=== PATIENT | male | born 1945 | race Caucasian/White ===

== ENCOUNTER 2023-11-13 10:17 | Day surgery (SDC) | payer MEDICARE, OTHER, SELFPAY ==
[2023-11-13] VITALS (9 sets, daily range): BP systolic 109–166; BP diastolic 64–86; PULSE 65–76; RESP 10–24; TEMP 36.1–36.8; O2SAT 93–99; BMI 31.7
[2023-11-13] MEDS: LACTATED RINGERS 1,000 ML 84 ML IV (11:19)
--- NOTE | 2023-11-13 11:46 | PM.HP.1 ---
History of Present Illness History of Present Illness Chief complaint: [facility] [place]: Morning chest discomfort/fullness. Rule out GERD PFSH Medical History (Updated 08/30/22 @ 13:29 by BETZAIDA Roa) Daytime sleepiness History of decreased platelet count Idiopathic hypersomnia (~2011) Obstructive sleep apnea of adult (~2011) Surgical History (Updated 03/15/21 @ 12:59 by Luz Cosby CMA) H/O total knee replacement Social History Smoking Status: Never smoker Meds Home Medications and Allergies Home Medications Medication Instructions Recorded Confirmed Type typhoid vaccin,live,attenuated 2 4 cap PO SEE INSTRUCTIONS #4 caps 12/06/16 03/20/21 Rx billion unit capsule,delayed release (Vivotif Linda Vaccine) ResMed Aircurve 10 VAuto BIPAP #1 ea 12/02/18 03/20/21 History aspirin 81 mg tablet,delayed 81 mg PO DAILY 03/15/21 03/20/21 History release (Adult Low Dose Aspirin) glucosamine sulfate 500 mg capsule 500 mg PO DAILY 03/15/21 03/20/21 History losartan 50 mg tablet 50 mg PO DAILY 03/15/21 03/20/21 History ciprofloxacin 0.3 %-dexamethasone 4 drp EAR-RIGHT Q12H #7.5 mL 05/02/21 05/02/21 Rx 0.1 % ear drops,suspension (Ciprodex) Allergies Allergy/AdvReac Type Severity Reaction Status Date / Time iodine [IODINE] Allergy Unknown Verified 11/13/23 11:20 Penicillins [PENICILLINS] Allergy Unknown Verified 11/13/23 11:20 propofol [PROPOFOL] Allergy Unknown Verified 11/13/23 11:20 Assessment & Plan Assessment & Plan narrative: Chest discomfort/fullness. Rule out GERD. EGD to be performed. Risks, benefits, alternatives have been explained.
--- NOTE | 2023-11-13 11:47 | PM.OP.EGD ---
Operative Date/Time/Diagnoses Date of procedure: 11/13/23 Pre-op diagnosis: See indication and findings Procedure & Clinicians Study performed: EGD Indications: Morning chest discomfort/fullness rule out GERD Surgeon: Chasity Wick Procedure Notes Procedure in detail: After informed consent was obtained the patient was placed in left lateral decubitus position. The video upper scope was placed into the oropharynx and with the patient's help swelled into the esophagus. The esophagus stomach and duodenum were carefully examined. On withdrawal, retroflexed view the GE junction was performed. The scope was removed. The patient tolerated procedure well. Blood loss none Complications none Sedation mac Findings 1. Normal esophagus 2. Normal stomach 3. Normal duodenum While it is still think it is quite reasonable to believe his morning symptoms are related to reflux there is no evidence esophagitis or other esophageal lesion at this time. I think for the time being he should double up on his q.h.s. omeprazole and report back on how he did on this medication change.
[2023-11-13] MEDS: ONDANSETRON 4 MG/2 ML INJ IV (12:58)
== END 2023-11-13 13:43 | disposition home or self-care (01) ==
PROVIDERS: Family Provider Family Medicine; PCP Family Medicine; Referring Provider Internal Medicine Gastroenterology; Visit Provider Internal Medicine Gastroenterology
PROC: 0DJ08ZZ Inspection of Upper Intestinal Tract, Via Natural or Artificial Opening Endoscopic (ICD-10-PCS; CPT 43235; principal; 2023-11-13 11:30)
DX: R07.89 Other chest pain (principal)
CPT/HCPCS: 43235; J2250; J2405; J3010